=== PATIENT | female | born 1985 | race Asian ===

== ENCOUNTER 2021-12-10 08:47 | Emergency (ER) | payer OTHER, SELFPAY ==
--- NOTE | ~2021-12-10 | XR_ITS ---
EXAMINATION: XR chest 1V portable DATE: 12/10/2021 09:20 INDICATION: Chest pain. Cough. TECHNIQUE: A single frontal view of the chest was obtained. COMPARISON: None. FINDINGS: The chest demonstrates clear lungs without pneumonia, pleural effusion, or pneumothorax. Th e heart size is normal. IMPRESSION: 1. No acute cardiopulmonary disease. Reviewed, dictated and finalized at location A.
[2021-12-10 08:52] VITALS: BP 133/79; PULSE 110; RESP 20; TEMP 37; O2SAT 98
--- NOTE | 2021-12-10 08:56 | ECG_ITS ---
Measurements Intervals [place] Rate: 92 P: 62 [place]: 131 QRS: 82 QRSD: 81 T: 51 QT: 319 QTc: 395 Interpretive Statements SINUS RHYTHM NORMAL ECG NO PREVIOUS ECG AVAILABLE FOR COMPARISON Electronically Signed On 12-10-2021 13:56:30 CDT by Radames Pang D.O.
--- NOTE | 2021-12-10 09:02 | ED.CHESTPAIN ---
HPI - Chest Pain General Chief Complaint: Chest Pain Stated Complaint: COVID +, chest pain Time Seen by Provider: 12/10/21 08:52 Source: RN notes reviewed History of Present Illness HPI narrative: Patient presents emergency department from home for chest pain. Patient states that symptoms began approximately 2 days ago with some rhinorrhea and postnasal drip she states she had treated with allergy medication but the symptoms continue to worsen she taken at home COVID test last night that was positive. She has had last night she began develop some midsternal chest pain with coughing and today has had constant midsternal chest pain described as a heaviness. States pain is worse when she coughs she denies any fevers or chills shortness of breath abdominal pain nausea Related Data Allergies Allergy/AdvReac Type Severity Reaction Status Date / Time amoxicillin Allergy Hives Verified 12/10/21 09:01 prednisone Allergy Other Verified 12/10/21 09:01 Sulfa (Sulfonamide Allergy Hives Verified 12/10/21 09:01 Antibiotics) Review of Systems Review of Systems: Gen.: Denies fevers or chills reports COVID-19 Eyes: Denies eye pain or visual change ENT: Denies congestion Respiratory: Denies shortness of breath or cough CV: See HPI GI: Denies abdominal pain nausea, emesis or diarrhea Musculoskeletal: Denies back pain or muscle pain Neuro: Denies numbness, tingling, weakness or focal weakness Skin: Denies rash Except as documented, all other systems reviewed and negative [facility] Past Medical History Medical History (Updated 12/10/21 @ 12:46 by David Schultz DO) Patient denies significant medical history Social History Social History (Updated 12/10/21 @ 09:29 by David Schultz DO) Smoking status: Never smoker Exam Narrative: APPEARANCE: No acute distress, nontoxic, resting in bed EYES: EOMI HEENT: Normocephalic, atraumatic, OMM RESPIRATORY: No respiratory distress Clear to auscultation bilaterally with no rhonchi wheezing or rales. CARDIOVASCULAR: Regular rate and rhythm without murmurs rubs or gallops. Chest: Tender palpation over the bilateral anterior chest wall pain increased with coughing and deep inspiration about ABDOMINAL: Soft, nontender, nondistended, no rebound or guarding MUSCULOSKELETAl: Moves all extremities. No clubbing, cyanosis or edema. NEURO: Awake and alert. Following commands, speech normal, no focal deficits SKIN:: Warm, dry. No rashes lesions or abrasions PSYCHIATRIC: Normal affect/mood, Course Course Emergency Course: Patient states she is feeling much better following Toradol Discussed with patient results of workup and diagnosis. Discussed need for follow-up with primary care, proper use of medication, and reasons to return to the emergency department. Patient understands and agrees to current treatment plan Vital Signs Vital signs: Vital Signs Temperature 98.6 F 12/10/21 08:52 Pulse Rate 110 H 12/10/21 08:52 Respiratory Rate 20 12/10/21 08:52 Blood Pressure 133/79 12/10/21 08:52 Pulse Oximetry 98 12/10/21 08:52 Temperature 99.5 F 12/10/21 10:26 Pulse Rate 105 H 12/10/21 10:26 Respiratory Rate 18 12/10/21 10:26 Blood Pressure 122/80 12/10/21 10:26 Pulse Oximetry 99 12/10/21 10:26 MDM - Chest Pain MDM Narrative Medical decision making narrative: Patient's EKGs and labs are without significant high risk changes. Cardiac risk factors reviewed. Patient is felt likely low risk for ACS and reasonable for further risk stratification testing as an outpatient. Pain was not sudden or maximal in onset without tearing or ripping quality. No other signs of symptoms suggest aortic dissection. A low-risk Wells criteria is noted, PE is felt to be unlikely. No pneumonia seen on evaluation today. Patient is felt to be a reasonable candidate for continued evaluation as an outpatient Patient with 2 negative troponins throughout stay in ED Lab Data Result diagrams
[2021-12-10 09:05] VITALS: PULSE 107
[2021-12-10 09:13] LABS: Basophils Percent Auto 0.5 % (0.2-1.2); Eosinophils Percent Auto 0.3 % (0-4.4); Hematocrit 41.9 % (37.0-47.0); Hemoglobin 14.1 g/dL (12.0-15.0); Immature Granulocyte Absolute 0.01 K/mm3 (0.00-0.031); Immature Granulocyte Percent A 0.2 % (0-0.5); Lymphocytes Absolute Auto 0.82 K/mm3 (0.9-3.2); Lymphocytes Percent Auto 12.7 % (18.3-44.2); Mean Corpuscular HGB Conc 33.7 g/dl (32-36); Mean Corpuscular Hemoglobin 31.3 pg (26-34); Mean Corpuscular Volume 92.9 fl (80-100); Mean Platelet Volume 10.3 fl (7.4-10.4); Monocytes Absolute Auto 0.5 K/mm3 (0.1-0.6); Monocytes Percent Auto 8.2 % (2.6-8.5); Neutrophils Absolute Auto 5.1 K/mm3 (1.3-6.7); Neutrophils Percent Auto 78.1 % (45.5-73.1); Platelet Count Result 194 k/mm3 (150-375); Red Blood Count 4.51 M/mm3 (4.2-5.4); Red Cell Distribution Width 12.3 % (11.5-14.5); White Blood Count 6.5 K/mm3 (4.5-10.0)
[2021-12-10 09:33] VITALS: BP 128/80; PULSE 104; RESP 13; O2SAT 99
[2021-12-10] MEDS: KETOROLAC 30 MG/ML VIAL (*BKC) IV PUSH (09:33)
[2021-12-10] MEDS: SODIUM CHLORIDE 0.9% IV 1,000 ML 999 ML IV CONT (09:33)
[2021-12-10 09:38] LABS: INR 1.1; Prothrombin Time 13.6 Seconds (11.1-14.7)
[2021-12-10 09:50] LABS: D Dimer 0.31 ug/mL (<0.48)
[2021-12-10 09:55] LABS: Alanine Aminotransferase 10 U/L (6-35); Albumin Level 4.1 g/dL (3.5-5.1); Alkaline Phosphatase 38 U/L (38-126); Anion Gap 6 mmol/L (8-16); Aspartate Amino Transferase 19 U/L (14-36); Bilirubin,Total 0.5 mg/dL (0.2-1.3); Blood Urea Nitrogen 15 mg/dL (7-17); Calcium 8.9 mg/dL (8.4-10.2); Carbon Dioxide 24 mmol/L (22-30); Chloride 107 mmol/L (98-107); Estimated CRCL calculation 61 ml/min; Estimated Glomerular Filt Rate > 60; Glucose 91 mg/dL (65-110); Lipase 36 U/L (23-300); Potassium 4.3 mmol/L (3.4-5.0); Sodium 137 mmol/L (137-145)
[2021-12-10 10:05] LABS: Troponin I < 0.012 ng/mL (0.000-0.034)
[2021-12-10 10:26] VITALS: BP 122/80; PULSE 105; RESP 18; TEMP 37.5; O2SAT 99
--- NOTE | 2021-12-10 11:35 | PC.NURSE ---
Assumed pt care from AYUSH Abraham
[2021-12-10 12:33] LABS: Troponin I < 0.012 ng/mL (0.000-0.034)
[2021-12-10 12:58] VITALS: BP 120/84; PULSE 99; RESP 14; O2SAT 99
== END 2021-12-10 12:59 | disposition home or self-care (01) ==
PROVIDERS: Emergency Provider Emergency Medicine
DX: U07.1 COVID-19 (principal); R07.89 Other chest pain
CPT/HCPCS: 36415; 71045; 80053; 83690; 84484; 85025; 85380; 85610; 85730; 93005; 96361; 96374; 99284; J1885; J7030